=== PATIENT | female | born 1955 | race Caucasian/White ===

== ENCOUNTER 2023-01-18 10:23 | Inpatient (IN) | payer OTHER ==
[~2023-01-18] VITALS: Ht 177.8 cm; Wt 100.7 kg
[2023-01-18 10:32] VITALS: BP_SYST 117
[2023-01-18] MEDS ORDERED: IPRATROPIUM/ALBUTEROL SULFATE 3 ML AMPUL.NEB (DUONEB) INH ONE (11:15)
[2023-01-18 11:50] LABS: BASOPHILS # (AUTO) 0.1 K/uL (0.0-0.2); BASOPHILS % (AUTO) 0.8 % (0.0-2.0); EOSINOPHILS # (AUTO) 0.1 K/uL (0.0-0.4); EOSINOPHILS % (AUTO) 1.1 % (0.0-4.0); HEMATOCRIT 40.3 % (36-48); HEMOGLOBIN 13.1 g/dL (12.0-16.0); LYMPHOCYTES # (AUTO) 2.5 K/uL (1.0-5.5); LYMPHOCYTES % (AUTO) 32.9 % (20.5-51.5); MEAN CORPUSCULAR HEMOGLOBIN 29 pg (27-31); MEAN CORPUSCULAR HGB CONC 33 % (32-36); MEAN CORPUSCULAR VOLUME 88 fL (79.0-98.0); MONOCYTES # (AUTO) 0.5 K/uL (0.0-1.0); MONOCYTES % (AUTO) 7.1 % (1.7-9.3); NEUTROPHILS # (AUTO) 4.4 K/uL (1.8-7.7); NEUTROPHILS % (AUTO) 58.1 % (40.0-70.0); PLATELET COUNT (AUTO) 236 K/uL (130-430); RED BLOOD CELL COUNT(AUTO) 4.56 MIL/uL (4.2-6.2); RED CELL DISTRIBUTION WIDTH 17.2 % (9.0-15.0); WHITE BLOOD COUNT (AUTO) 7.5 K/uL (4.8-10.8)
[2023-01-18 12:00] LABS: ANION GAP 9 (5-15); CALCIUM 9.5 mg/dL (8.4-11.0); CHLORIDE 105 mmol/L (98-107); CREATININE 0.67 mg/dL (0.55-1.30); GLUCOSE 114 mg/dL (70-99); UREA NITROGEN, BLOOD 19 mg/dL (8-21)
[2023-01-18 12:04] LABS: GFR AFRICAN AMERICAN 113 mL/min (>90); PROTHROMBIN TIME 10.3 SECS (9.5-12.5)
[2023-01-18 12:07] LABS: ALANINE AMINOTRANSFERASE 29 U/L (12-78); ALBUMIN 3.3 g/dL (3.4-4.8); ASPARTATE AMINOTRANSFERASE 26 U/L (10-37); TOTAL BILIRUBIN 1.1 mg/dL (0.0-1.0)
[2023-01-18 12:50] LABS: BILIRUBIN,URINE 1+ (NEGATIVE); BLOOD, URINE NEGATIVE (NEGATIVE); CLARITY/URINE CLEAR (CLEAR); GLUCOSE,URINE NEGATIVE (NEGATIVE); KETONES,URINE TRACE (NEGATIVE); LEUKOCYTE ESTERASE ,URINE NEGATIVE (NEGATIVE); NITRITE, URINE NEGATIVE (NEGATIVE); PH,URINE 5.5 (5.0-8.0); PROTEIN URINE NEGATIVE (NEGATIVE)
[2023-01-18 12:53] LABS: COLOR,URINE AMBER (YELLOW)
[2023-01-18] MEDS ORDERED: DOCU-144 GT (12:53)
[2023-01-18] MEDS ORDERED: THEO80SO4 GT (12:53)
[2023-01-18] MEDS ORDERED: LEVO125T8 GT (12:53)
[2023-01-18] MEDS ORDERED: LACT10SO7 GT (12:53)
[2023-01-18] MEDS ORDERED: HYDR-4038 GT (12:53)
[2023-01-18] MEDS ORDERED: PRO40 GT (12:53)
[2023-01-18] MEDS ORDERED: METO-290 GT (12:53)
[2023-01-18] MEDS ORDERED: LOSA100T3 GT (12:53)
[2023-01-18] MEDS ORDERED: FOLI-43 GT (12:53)
[2023-01-18] MEDS ORDERED: SENN8.6T19 GT (12:53)
[2023-01-18] MEDS ORDERED: CYAN100T44 GT (12:53)
[2023-01-18] MEDS ORDERED: IPRA4AER INH (12:53)
[2023-01-18] MEDS ORDERED: cefTRIAXone 1 GM IVPB PREMIX 50 ML IV ONE (13:00)
[2023-01-18] MEDS ORDERED: DEXAMETHASONE SOD PHOSPHATE 10 MG/ML VIAL IVP ONE (13:00)
[2023-01-18 15:43] VITALS: BP_SYST 106
[2023-01-18 15:44] VITALS: BP_SYST 106
[2023-01-18 21:00] VITALS: BP_SYST 112
[2023-01-19] VITALS: BP_SYST 111
[2023-01-19 08:00] VITALS: BP_SYST 122
[2023-01-19] MEDS ORDERED: HYDROcodone/ACETAMIN 5-325 MG TAB (NORCO/ VICODIN) PO PRN (08:45)
[2023-01-19] MEDS ORDERED: ACETAMINOPHEN 325 MG TABLET PO PRN (08:45)
[2023-01-19] MEDS: HYDROcodone/ACETAMIN 10-325 MG TAB PO PRN ×2 (09:09→21:06)
[2023-01-19 11:28] VITALS: BP_SYST 122
[2023-01-19] MEDS: DEXAMETHASONE SOD PHOSPHATE 10 MG/ML VIAL IVP SCH (11:51)
[2023-01-19 12:00] VITALS: BP_SYST 104
[2023-01-19] MEDS ORDERED: IPRATROPIUM/ALBUTEROL SULFATE 120 PUFFS/4 GM INH INH SCH (13:15)
[2023-01-19] MEDS ORDERED: NON-FORMULARY MEDICATION (Lactulose 20 GM) GT SCH (13:15)
[2023-01-19] MEDS: cefTRIAXone 1 GM in D5W 50 ML IV SCH (13:26)
[2023-01-19] MEDS ORDERED: LACTULOSE 20 GM/30 ML UDC GT PRN (14:00)
[2023-01-19] MEDS: AZITHROMYCIN 500 MG in NS 250 ML IV SCH (14:15)
[2023-01-19] MEDS: METOCLOPRAMIDE HCL 10 MG TABLET GT SCH ×2 (14:21→21:03)
[2023-01-19] MEDS ORDERED: IPRATROPIUM/ALBUTEROL SULFATE 3 ML AMPUL.NEB (DUONEB) INH SCH (15:00)
[2023-01-19] MEDS: ALBUTEROL MDI INHALATION 8 GM INH INH SCH ×2 (15:00→19:00)
[2023-01-19 16:00] VITALS: BP_SYST 106
[2023-01-19 20:50] VITALS: BP_SYST 113
[2023-01-19] MEDS: SENNOSIDES 8.6 MG TABLET GT SCH (21:03)
[2023-01-20 02:22] VITALS: BP_SYST 110
[2023-01-20] MEDS: LEVOTHYROXINE SODIUM 0.15 MG TABLET GT SCH (06:39)
[2023-01-20] MEDS: METOCLOPRAMIDE HCL 10 MG TABLET GT SCH ×3 (06:39→20:52)
[2023-01-20] MEDS: ALBUTEROL MDI INHALATION 8 GM INH INH SCH ×4 (07:00→19:28)
[2023-01-20 07:06] LABS: BASOPHILS % (AUTO) 0.3 % (0.0-2.0); HEMATOCRIT 37.2 % (36-48); HEMOGLOBIN 12.5 g/dL (12.0-16.0); LYMPHOCYTES # (AUTO) 2.4 K/uL (1.0-5.5); LYMPHOCYTES % (AUTO) 32.2 % (20.5-51.5); MEAN CORPUSCULAR HEMOGLOBIN 29 pg (27-31); MEAN CORPUSCULAR HGB CONC 34 % (32-36); MEAN CORPUSCULAR VOLUME 87 fL (79.0-98.0); MONOCYTES # (AUTO) 0.5 K/uL (0.0-1.0); MONOCYTES % (AUTO) 6.2 % (1.7-9.3); NEUTROPHILS # (AUTO) 4.5 K/uL (1.8-7.7); NEUTROPHILS % (AUTO) 61.3 % (40.0-70.0); PLATELET COUNT (AUTO) 261 K/uL (130-430); RED BLOOD CELL COUNT(AUTO) 4.27 MIL/uL (4.2-6.2); WHITE BLOOD COUNT (AUTO) 7.3 K/uL (4.8-10.8)
[2023-01-20 07:43] LABS: ALBUMIN 3.2 g/dL (3.4-4.8); C-REACTIVE PROTEIN QUANT 0.2 mg/dL (0-0.5); CALCIUM 9.6 mg/dL (8.4-11.0); CREATININE 0.7 mg/dL (0.55-1.30); TOTAL BILIRUBIN 0.4 mg/dL (0.0-1.0)
[2023-01-20 08:00] VITALS: BP_SYST 138
[2023-01-20 08:04] LABS: ERYTHROCYTE SEDIMENTATION RATE 34 MM/HR (0-20)
[2023-01-20] MEDS: hydrALAZINE HCL 25 MG TABLET GT SCH (08:43)
[2023-01-20] MEDS: THEOPHYLLINE ANHYDROUS 80 MG/15 ML UDC GT SCH (08:43)
[2023-01-20] MEDS: LOSARTAN POTASSIUM 50 MG TABLET (COZAAR) GT SCH (08:43)
[2023-01-20] MEDS: FOLIC ACID 1 MG TABLET GT SCH (08:44)
[2023-01-20] MEDS: CYANOCOBALAMIN (VITAMIN B-12) 1,000 MCG TABLET GT SCH (08:44)
[2023-01-20] MEDS ORDERED: CYANOCOBALAMIN 500 MCG GT SCH (09:00)
[2023-01-20 12:00] VITALS: BP_SYST 116
[2023-01-20] MEDS: DEXAMETHASONE SOD PHOSPHATE 10 MG/ML VIAL IVP SCH (13:04)
[2023-01-20] MEDS: cefTRIAXone 1 GM in D5W 50 ML IV SCH (13:04)
[2023-01-20] MEDS: AZITHROMYCIN 500 MG in NS 250 ML IV SCH (14:06)
[2023-01-20 16:00] VITALS: BP_SYST 115
[2023-01-20 20:50] VITALS: BP_SYST 117
[2023-01-20] MEDS: SENNOSIDES 8.6 MG TABLET GT SCH (20:52)
[2023-01-20] MEDS: HYDROcodone/ACETAMIN 10-325 MG TAB PO PRN (20:52)
[2023-01-21 00:10] VITALS: BP_SYST 90
[2023-01-21] MEDS: METOCLOPRAMIDE HCL 10 MG TABLET GT SCH ×3 (06:45→22:00)
[2023-01-21] MEDS: LEVOTHYROXINE SODIUM 0.15 MG TABLET GT SCH (06:45)
[2023-01-21 08:00] VITALS: BP_SYST 114
[2023-01-21] MEDS: ALBUTEROL MDI INHALATION 8 GM INH INH SCH ×4 (08:52→19:20)
[2023-01-21 09:14] LABS: BASOPHILS # (AUTO) 0.1 K/uL (0.0-0.2); BASOPHILS % (AUTO) 0.6 % (0.0-2.0); HEMATOCRIT 41.3 % (36-48); HEMOGLOBIN 13.5 g/dL (12.0-16.0); LYMPHOCYTES # (AUTO) 4.2 K/uL (1.0-5.5); LYMPHOCYTES % (AUTO) 40.2 % (20.5-51.5); MEAN CORPUSCULAR HEMOGLOBIN 29 pg (27-31); MEAN CORPUSCULAR HGB CONC 33 % (32-36); MEAN CORPUSCULAR VOLUME 88 fL (79.0-98.0); MONOCYTES # (AUTO) 0.3 K/uL (0.0-1.0); MONOCYTES % (AUTO) 2.8 % (1.7-9.3); NEUTROPHILS # (AUTO) 5.9 K/uL (1.8-7.7); NEUTROPHILS % (AUTO) 56.4 % (40.0-70.0); PLATELET COUNT (AUTO) 274 K/uL (130-430); RED BLOOD CELL COUNT(AUTO) 4.71 MIL/uL (4.2-6.2); RED CELL DISTRIBUTION WIDTH 16.8 % (9.0-15.0); WHITE BLOOD COUNT (AUTO) 10.4 K/uL (4.8-10.8)
[2023-01-21 09:22] LABS: ALANINE AMINOTRANSFERASE 18 U/L (12-78); ALBUMIN 3.3 g/dL (3.4-4.8); ANION GAP 11 (5-15); ASPARTATE AMINOTRANSFERASE 12 U/L (10-37); CALCIUM 9.6 mg/dL (8.4-11.0); CHLORIDE 105 mmol/L (98-107); CREATININE 0.73 mg/dL (0.55-1.30); GLUCOSE 158 mg/dL (70-99); TOTAL BILIRUBIN 0.4 mg/dL (0.0-1.0); UREA NITROGEN, BLOOD 28 mg/dL (8-21)
[2023-01-21 09:23] LABS: C-REACTIVE PROTEIN QUANT < 0.2 mg/dL (0-0.5); ERYTHROCYTE SEDIMENTATION RATE 37 MM/HR (0-20); GFR AFRICAN AMERICAN 102 mL/min (>90)
[2023-01-21] MEDS: FOLIC ACID 1 MG TABLET GT SCH (09:54)
[2023-01-21] MEDS: hydrALAZINE HCL 25 MG TABLET GT SCH (09:54)
[2023-01-21] MEDS: LOSARTAN POTASSIUM 50 MG TABLET (COZAAR) GT SCH (09:54)
[2023-01-21] MEDS: CYANOCOBALAMIN (VITAMIN B-12) 1,000 MCG TABLET GT SCH (09:54)
[2023-01-21] MEDS: THEOPHYLLINE ANHYDROUS 80 MG/15 ML UDC GT SCH (09:55)
[2023-01-21] MEDS ORDERED: ENOXAPARIN SODIUM 30 MG/0.3 ML SYRINGE SUBCUT ONE (11:00)
[2023-01-21 11:55] VITALS: BP_SYST 100
[2023-01-21] MEDS: cefTRIAXone 1 GM in D5W 50 ML IV SCH (14:52)
[2023-01-21 15:40] VITALS: BP_SYST 107
[2023-01-21] MEDS: AZITHROMYCIN 500 MG in NS 250 ML IV SCH (16:29)
[2023-01-21 20:30] VITALS: BP_SYST 109
[2023-01-21] MEDS: SENNOSIDES 8.6 MG TABLET GT SCH (21:00)
[2023-01-22 00:11] VITALS: BP_SYST 110
[2023-01-22] MEDS: METOCLOPRAMIDE HCL 10 MG TABLET GT SCH ×3 (06:40→22:42)
[2023-01-22] MEDS: LEVOTHYROXINE SODIUM 0.15 MG TABLET GT SCH (06:40)
[2023-01-22 08:00] VITALS: BP_SYST 142
[2023-01-22] MEDS: THEOPHYLLINE ANHYDROUS 80 MG/15 ML UDC GT SCH (09:00)
[2023-01-22] MEDS ORDERED: DECADRON 4 MG TABLET PO SCH (09:00)
[2023-01-22] MEDS: ENOXAPARIN SODIUM 30 MG/0.3 ML SYRINGE SUBCUT SCH (09:01)
[2023-01-22] MEDS: LOSARTAN POTASSIUM 50 MG TABLET (COZAAR) GT SCH (09:02)
[2023-01-22] MEDS: hydrALAZINE HCL 25 MG TABLET GT SCH (09:02)
[2023-01-22] MEDS: FOLIC ACID 1 MG TABLET GT SCH (09:02)
[2023-01-22] MEDS: CYANOCOBALAMIN (VITAMIN B-12) 1,000 MCG TABLET GT SCH (09:02)
[2023-01-22 09:47] LABS: BASOPHILS % (AUTO) 0.5 % (0.0-2.0); EOSINOPHILS # (AUTO) 0.1 K/uL (0.0-0.4); EOSINOPHILS % (AUTO) 1.5 % (0.0-4.0); HEMATOCRIT 41.1 % (36-48); HEMOGLOBIN 13.4 g/dL (12.0-16.0); LYMPHOCYTES # (AUTO) 2.9 K/uL (1.0-5.5); MEAN CORPUSCULAR HEMOGLOBIN 29 pg (27-31); MEAN CORPUSCULAR HGB CONC 33 % (32-36); MEAN CORPUSCULAR VOLUME 88 fL (79.0-98.0); MONOCYTES # (AUTO) 0.5 K/uL (0.0-1.0); MONOCYTES % (AUTO) 6.3 % (1.7-9.3); NEUTROPHILS # (AUTO) 4.7 K/uL (1.8-7.7); NEUTROPHILS % (AUTO) 56.7 % (40.0-70.0); PLATELET COUNT (AUTO) 312 K/uL (130-430); RED BLOOD CELL COUNT(AUTO) 4.69 MIL/uL (4.2-6.2); RED CELL DISTRIBUTION WIDTH 16.9 % (9.0-15.0); WHITE BLOOD COUNT (AUTO) 8.3 K/uL (4.8-10.8)
[2023-01-22 10:03] LABS: ALBUMIN 3.1 g/dL (3.4-4.8); CALCIUM 9.2 mg/dL (8.4-11.0); CREATININE 0.71 mg/dL (0.55-1.30); TOTAL BILIRUBIN 0.4 mg/dL (0.0-1.0)
[2023-01-22] MEDS ORDERED: POTASSIUM CHLORIDE 20 MEQ/PKT PACKET GT ONE (10:45)
[2023-01-22] MEDS: ALBUTEROL MDI INHALATION 8 GM INH INH SCH ×4 (11:11→19:43)
[2023-01-22 12:05] VITALS: BP_SYST 121
[2023-01-22] MEDS: cefTRIAXone 1 GM in D5W 50 ML IV SCH (13:55)
[2023-01-22] MEDS: AZITHROMYCIN 500 MG in NS 250 ML IV SCH (15:14)
[2023-01-22 15:15] VITALS: BP_SYST 123
[2023-01-22 20:00] VITALS: BP_SYST 128
[2023-01-22] MEDS: SENNOSIDES 8.6 MG TABLET GT SCH (22:42)
[2023-01-23 02:09] VITALS: BP_SYST 146
[2023-01-23] MEDS: METOCLOPRAMIDE HCL 10 MG TABLET GT SCH ×3 (06:42→20:23)
[2023-01-23] MEDS: LEVOTHYROXINE SODIUM 0.15 MG TABLET GT SCH (06:42)
[2023-01-23] MEDS: ALBUTEROL MDI INHALATION 8 GM INH INH SCH ×4 (07:53→19:40)
[2023-01-23] MEDS: FOLIC ACID 1 MG TABLET GT SCH ×2 (09:00→11:48)
[2023-01-23] MEDS: ENOXAPARIN SODIUM 30 MG/0.3 ML SYRINGE SUBCUT SCH ×2 (09:00→11:47)
[2023-01-23] MEDS: THEOPHYLLINE ANHYDROUS 80 MG/15 ML UDC GT SCH ×2 (09:00→11:49)
[2023-01-23] MEDS: LOSARTAN POTASSIUM 50 MG TABLET (COZAAR) GT SCH ×2 (09:00→11:50)
[2023-01-23] MEDS: hydrALAZINE HCL 25 MG TABLET GT SCH ×2 (09:00→11:50)
[2023-01-23] MEDS: CYANOCOBALAMIN (VITAMIN B-12) 1,000 MCG TABLET GT SCH ×2 (09:00→11:48)
[2023-01-23 09:01] LABS: BASOPHILS % (AUTO) 0.3 % (0.0-2.0); EOSINOPHILS # (AUTO) 0.1 K/uL (0.0-0.4); HEMATOCRIT 38.9 % (36-48); LYMPHOCYTES # (AUTO) 2.7 K/uL (1.0-5.5); LYMPHOCYTES % (AUTO) 30.5 % (20.5-51.5); MEAN CORPUSCULAR HEMOGLOBIN 29 pg (27-31); MEAN CORPUSCULAR HGB CONC 34 % (32-36); MEAN CORPUSCULAR VOLUME 87 fL (79.0-98.0); MONOCYTES # (AUTO) 0.7 K/uL (0.0-1.0); MONOCYTES % (AUTO) 7.7 % (1.7-9.3); NEUTROPHILS # (AUTO) 5.4 K/uL (1.8-7.7); NEUTROPHILS % (AUTO) 60.5 % (40.0-70.0); PLATELET COUNT (AUTO) 311 K/uL (130-430); RED BLOOD CELL COUNT(AUTO) 4.48 MIL/uL (4.2-6.2); RED CELL DISTRIBUTION WIDTH 16.8 % (9.0-15.0); WHITE BLOOD COUNT (AUTO) 8.9 K/uL (4.8-10.8)
[2023-01-23 09:09] LABS: CALCIUM 9.6 mg/dL (8.4-11.0); CREATININE 0.6 mg/dL (0.55-1.30); TOTAL BILIRUBIN 0.5 mg/dL (0.0-1.0)
[2023-01-23 09:53] VITALS: BP_SYST 122
[2023-01-23 12:00] VITALS: BP_SYST 136
[2023-01-23] MEDS: cefTRIAXone 1 GM in D5W 50 ML IV SCH (14:20)
[2023-01-23] MEDS: AZITHROMYCIN 500 MG in NS 250 ML IV SCH (15:53)
[2023-01-23 16:19] VITALS: BP_SYST 128
[2023-01-23 19:50] VITALS: BP_SYST 114
[2023-01-23] MEDS: SENNOSIDES 8.6 MG TABLET GT SCH (20:23)
[2023-01-24 01:11] VITALS: BP_SYST 118
[2023-01-24] MEDS: METOCLOPRAMIDE HCL 10 MG TABLET GT SCH ×3 (06:17→21:17)
[2023-01-24] MEDS: LEVOTHYROXINE SODIUM 0.15 MG TABLET GT SCH (06:17)
[2023-01-24] MEDS: ALBUTEROL MDI INHALATION 8 GM INH INH SCH ×4 (08:33→20:04)
[2023-01-24 09:06] LABS: BASOPHILS # (AUTO) 0.1 K/uL (0.0-0.2); BASOPHILS % (AUTO) 0.7 % (0.0-2.0); EOSINOPHILS # (AUTO) 0.2 K/uL (0.0-0.4); EOSINOPHILS % (AUTO) 1.8 % (0.0-4.0); HEMATOCRIT 38.6 % (36-48); HEMOGLOBIN 12.7 g/dL (12.0-16.0); LYMPHOCYTES # (AUTO) 3.5 K/uL (1.0-5.5); LYMPHOCYTES % (AUTO) 38.5 % (20.5-51.5); MEAN CORPUSCULAR HEMOGLOBIN 29 pg (27-31); MEAN CORPUSCULAR HGB CONC 33 % (32-36); MEAN CORPUSCULAR VOLUME 88 fL (79.0-98.0); MONOCYTES # (AUTO) 0.6 K/uL (0.0-1.0); NEUTROPHILS # (AUTO) 4.7 K/uL (1.8-7.7); PLATELET COUNT (AUTO) 289 K/uL (130-430); RED BLOOD CELL COUNT(AUTO) 4.41 MIL/uL (4.2-6.2); WHITE BLOOD COUNT (AUTO) 9.1 K/uL (4.8-10.8)
[2023-01-24 09:49] LABS: CALCIUM 9.2 mg/dL (8.4-11.0); CREATININE 0.74 mg/dL (0.55-1.30); TOTAL BILIRUBIN 0.6 mg/dL (0.0-1.0)
[2023-01-24 10:27] VITALS: BP_SYST 122; BP_SYST 96
[2023-01-24] MEDS: LOSARTAN POTASSIUM 50 MG TABLET (COZAAR) GT SCH (10:35)
[2023-01-24] MEDS: hydrALAZINE HCL 25 MG TABLET GT SCH (10:35)
[2023-01-24] MEDS: FOLIC ACID 1 MG TABLET GT SCH (10:35)
[2023-01-24] MEDS: ENOXAPARIN SODIUM 30 MG/0.3 ML SYRINGE SUBCUT SCH (10:36)
[2023-01-24] MEDS: THEOPHYLLINE ANHYDROUS 80 MG/15 ML UDC GT SCH (10:36)
[2023-01-24] MEDS: CYANOCOBALAMIN (VITAMIN B-12) 1,000 MCG TABLET GT SCH (10:36)
[2023-01-24 12:15] VITALS: BP_SYST 126
[2023-01-24] MEDS: cefTRIAXone 1 GM in D5W 50 ML IV SCH (13:45)
[2023-01-24 16:00] VITALS: BP_SYST 121
[2023-01-24 21:00] VITALS: BP_SYST 121
[2023-01-24] MEDS: SENNOSIDES 8.6 MG TABLET GT SCH (21:17)
[2023-01-25 02:35] VITALS: BP_SYST 122
[2023-01-25] MEDS: METOCLOPRAMIDE HCL 10 MG TABLET GT SCH ×3 (06:32→21:20)
[2023-01-25] MEDS: LEVOTHYROXINE SODIUM 0.15 MG TABLET GT SCH (06:32)
[2023-01-25 07:08] LABS: BASOPHILS % (AUTO) 0.5 % (0.0-2.0); EOSINOPHILS # (AUTO) 0.2 K/uL (0.0-0.4); EOSINOPHILS % (AUTO) 2.1 % (0.0-4.0); HEMATOCRIT 37.6 % (36-48); HEMOGLOBIN 12.6 g/dL (12.0-16.0); LYMPHOCYTES # (AUTO) 3.1 K/uL (1.0-5.5); LYMPHOCYTES % (AUTO) 36.6 % (20.5-51.5); MEAN CORPUSCULAR HEMOGLOBIN 29 pg (27-31); MEAN CORPUSCULAR HGB CONC 33 % (32-36); MEAN CORPUSCULAR VOLUME 87 fL (79.0-98.0); MONOCYTES # (AUTO) 0.7 K/uL (0.0-1.0); MONOCYTES % (AUTO) 7.7 % (1.7-9.3); NEUTROPHILS # (AUTO) 4.5 K/uL (1.8-7.7); NEUTROPHILS % (AUTO) 53.1 % (40.0-70.0); PLATELET COUNT (AUTO) 315 K/uL (130-430); RED BLOOD CELL COUNT(AUTO) 4.33 MIL/uL (4.2-6.2); RED CELL DISTRIBUTION WIDTH 17.5 % (9.0-15.0); WHITE BLOOD COUNT (AUTO) 8.5 K/uL (4.8-10.8)
[2023-01-25] MEDS: ALBUTEROL MDI INHALATION 8 GM INH INH SCH ×4 (07:47→19:29)
[2023-01-25 08:00] VITALS: BP_SYST 118
[2023-01-25 08:01] LABS: ALBUMIN 2.9 g/dL (3.4-4.8); CALCIUM 9.4 mg/dL (8.4-11.0); CREATININE 0.75 mg/dL (0.55-1.30); TOTAL BILIRUBIN 0.7 mg/dL (0.0-1.0)
[2023-01-25] MEDS: CYANOCOBALAMIN (VITAMIN B-12) 1,000 MCG TABLET GT SCH (08:02)
[2023-01-25] MEDS: FOLIC ACID 1 MG TABLET GT SCH (08:02)
[2023-01-25] MEDS: ENOXAPARIN SODIUM 30 MG/0.3 ML SYRINGE SUBCUT SCH (08:02)
[2023-01-25] MEDS: hydrALAZINE HCL 25 MG TABLET GT SCH (08:02)
[2023-01-25] MEDS: LOSARTAN POTASSIUM 50 MG TABLET (COZAAR) GT SCH (09:00)
[2023-01-25] MEDS: THEOPHYLLINE ANHYDROUS 80 MG/15 ML UDC GT SCH (09:00)
[2023-01-25 11:25] VITALS: BP_SYST 125
[2023-01-25] MEDS: cefTRIAXone 1 GM in D5W 50 ML IV SCH (14:09)
[2023-01-25 15:25] VITALS: BP_SYST 113
[2023-01-25 20:00] VITALS: BP_SYST 118
[2023-01-25] MEDS: SENNOSIDES 8.6 MG TABLET GT SCH (21:20)
[2023-01-26 00:53] VITALS: BP_SYST 109
[2023-01-26] MEDS: LEVOTHYROXINE SODIUM 0.15 MG TABLET GT SCH (06:09)
[2023-01-26] MEDS: METOCLOPRAMIDE HCL 10 MG TABLET GT SCH ×3 (06:09→21:23)
[2023-01-26] MEDS: ALBUTEROL MDI INHALATION 8 GM INH INH SCH ×4 (07:57→20:26)
[2023-01-26 11:30] VITALS: BP_SYST 111
[2023-01-26 15:30] VITALS: BP_SYST 114
[2023-01-26] MEDS: hydrALAZINE HCL 25 MG TABLET GT SCH (18:29)
[2023-01-26] MEDS: LOSARTAN POTASSIUM 50 MG TABLET (COZAAR) GT SCH (18:30)
[2023-01-26] MEDS: THEOPHYLLINE ANHYDROUS 80 MG/15 ML UDC GT SCH (18:31)
[2023-01-26] MEDS: FOLIC ACID 1 MG TABLET GT SCH (18:32)
[2023-01-26] MEDS: CYANOCOBALAMIN (VITAMIN B-12) 1,000 MCG TABLET GT SCH (18:33)
[2023-01-26] MEDS: ENOXAPARIN SODIUM 30 MG/0.3 ML SYRINGE SUBCUT SCH (18:34)
[2023-01-26 20:00] VITALS: BP_SYST 108
[2023-01-26] MEDS: SENNOSIDES 8.6 MG TABLET GT SCH (21:23)
[2023-01-27 00:58] VITALS: BP_SYST 103
[2023-01-27] MEDS: LEVOTHYROXINE SODIUM 0.15 MG TABLET GT SCH (06:30)
[2023-01-27] MEDS: METOCLOPRAMIDE HCL 10 MG TABLET GT SCH ×3 (06:31→20:47)
[2023-01-27] MEDS: ALBUTEROL MDI INHALATION 8 GM INH INH SCH ×4 (08:11→23:01)
[2023-01-27] MEDS: LOSARTAN POTASSIUM 50 MG TABLET (COZAAR) GT SCH (19:44)
[2023-01-27] MEDS: FOLIC ACID 1 MG TABLET GT SCH (19:45)
[2023-01-27] MEDS: CYANOCOBALAMIN (VITAMIN B-12) 1,000 MCG TABLET GT SCH (19:45)
[2023-01-27] MEDS: THEOPHYLLINE ANHYDROUS 80 MG/15 ML UDC GT SCH (19:45)
[2023-01-27] MEDS: ENOXAPARIN SODIUM 30 MG/0.3 ML SYRINGE SUBCUT SCH (19:46)
[2023-01-27 20:00] VITALS: BP_SYST 108
[2023-01-27] MEDS: SENNOSIDES 8.6 MG TABLET GT SCH (20:46)
[2023-01-28] VITALS: BP_SYST 105
[2023-01-28] MEDS: LEVOTHYROXINE SODIUM 0.15 MG TABLET GT SCH (06:49)
[2023-01-28] MEDS: METOCLOPRAMIDE HCL 10 MG TABLET GT SCH ×3 (06:49→21:52)
[2023-01-28 08:00] VITALS: BP_SYST 109
[2023-01-28] MEDS: ALBUTEROL MDI INHALATION 8 GM INH INH SCH ×2 (08:01→16:22)
[2023-01-28] MEDS: LOSARTAN POTASSIUM 50 MG TABLET (COZAAR) GT SCH (09:23)
[2023-01-28] MEDS: CYANOCOBALAMIN (VITAMIN B-12) 1,000 MCG TABLET GT SCH (09:24)
[2023-01-28] MEDS: FOLIC ACID 1 MG TABLET GT SCH (09:24)
[2023-01-28] MEDS: ENOXAPARIN SODIUM 30 MG/0.3 ML SYRINGE SUBCUT SCH (09:25)
[2023-01-28] MEDS: THEOPHYLLINE ANHYDROUS 80 MG/15 ML UDC GT SCH (09:25)
[2023-01-28 12:00] VITALS: BP_SYST 102
[2023-01-28 16:56] VITALS: BP_SYST 105
[2023-01-28 20:00] VITALS: BP_SYST 106
[2023-01-28] MEDS: SENNOSIDES 8.6 MG TABLET GT SCH (21:52)
[2023-01-29 00:29] VITALS: BP_SYST 109
[2023-01-29] MEDS: ALBUTEROL MDI INHALATION 8 GM INH INH SCH ×4 (03:43→16:06)
[2023-01-29] MEDS: METOCLOPRAMIDE HCL 10 MG TABLET GT SCH ×2 (06:32→13:55)
[2023-01-29] MEDS: LEVOTHYROXINE SODIUM 0.15 MG TABLET GT SCH (06:32)
[2023-01-29] MEDS: LOSARTAN POTASSIUM 50 MG TABLET (COZAAR) GT SCH (07:55)
[2023-01-29 08:00] VITALS: BP_SYST 146; BP_SYST 94
[2023-01-29] MEDS: FOLIC ACID 1 MG TABLET GT SCH (08:42)
[2023-01-29] MEDS: CYANOCOBALAMIN (VITAMIN B-12) 1,000 MCG TABLET GT SCH (08:43)
[2023-01-29] MEDS: ENOXAPARIN SODIUM 30 MG/0.3 ML SYRINGE SUBCUT SCH (08:43)
[2023-01-29] MEDS: THEOPHYLLINE ANHYDROUS 80 MG/15 ML UDC GT SCH (08:45)
[2023-01-29 09:05] VITALS: BP_SYST 94
[2023-01-29 11:50] VITALS: BP_SYST 98
[2023-01-29] MEDS ORDERED: PIPERACILLIN/TAZO 3.375/DEX-IS 50 ML IV SCH (14:00)
[2023-01-29 15:21] LABS: BASOPHILS # (AUTO) 0.1 K/uL (0.0-0.2); BASOPHILS % (AUTO) 0.6 % (0.0-2.0); EOSINOPHILS # (AUTO) 0.1 K/uL (0.0-0.4); EOSINOPHILS % (AUTO) 1.2 % (0.0-4.0); HEMATOCRIT 39.4 % (36-48); LYMPHOCYTES # (AUTO) 2.7 K/uL (1.0-5.5); LYMPHOCYTES % (AUTO) 27.3 % (20.5-51.5); MEAN CORPUSCULAR HEMOGLOBIN 29 pg (27-31); MEAN CORPUSCULAR HGB CONC 33 % (32-36); MEAN CORPUSCULAR VOLUME 88 fL (79.0-98.0); MONOCYTES # (AUTO) 0.7 K/uL (0.0-1.0); MONOCYTES % (AUTO) 7.3 % (1.7-9.3); NEUTROPHILS # (AUTO) 6.3 K/uL (1.8-7.7); NEUTROPHILS % (AUTO) 63.6 % (40.0-70.0); PLATELET COUNT (AUTO) 285 K/uL (130-430); RED BLOOD CELL COUNT(AUTO) 4.49 MIL/uL (4.2-6.2); RED CELL DISTRIBUTION WIDTH 17.3 % (9.0-15.0); WHITE BLOOD COUNT (AUTO) 9.9 K/uL (4.8-10.8)
[2023-01-29 16:10] VITALS: BP_SYST 98
[2023-01-29 17:57] VITALS: BP_SYST 101
== END 2023-01-29 18:25 | DRG 871 ==
LOC: SED 10:23 → STU 13:35
PROVIDERS: ADMIT Internal Medicine; ATTEND Internal Medicine
PROC: XW033E5 Introduction of Remdesivir Anti-infective into Peripheral Vein, Percutaneous Approach, New Technology Group 5 (ICD-10-PCS; principal; 2023-01-19)
DX: A41.89 Other specified sepsis (principal); J12.82 Pneumonia due to coronavirus disease 2019; J96.01 Acute respiratory failure with hypoxia; U07.1 COVID-19; I69.351 Hemiplegia and hemiparesis following cerebral infarction affecting right dominant side; N39.0 Urinary tract infection, site not specified; E03.9 Hypothyroidism, unspecified; E88.09 Other disorders of plasma-protein metabolism, not elsewhere classified; I10 Essential (primary) hypertension; K21.9 Gastro-esophageal reflux disease without esophagitis; K59.00 Constipation, unspecified; R13.10 Dysphagia, unspecified; E66.9 Obesity, unspecified; R53.81 Other malaise; R73.9 Hyperglycemia, unspecified; Z68.31 Body mass index [BMI] 31.0-31.9, adult; Z79.899 Other long term (current) drug therapy
CPT/HCPCS: 36415; 36600; 71045; 80048; 80053; 81003; 82803-TC; 83605; 83880; 84484; 85025; 85379; 85610-TC; 85651-TC; 85730-TC; 86140; 87040; 87081; 87086; 92610-GN; 93005; 94640; 94664; 94760; 96365; 96375; 97110-GP; 97112-GP; 97530-GP; 99291; G0378; J0456; J0696; J1100; J1650; J7050; J7060; J8540; J8597